=== PATIENT | male | born 1985 | race Caucasian/White ===

== ENCOUNTER 2025-05-04 11:31 | Emergency (ER) | payer MEDICAID ==
[~2025-05-04] VITALS: Ht 172.7 cm; Wt 94.5 kg
[2025-05-04 15:15] VITALS: BP 127/86; PULSE 93; RESP 24; TEMP 98.8; O2SAT 96
[2025-05-04] MEDS: LORazepam 0.5 MG TAB PO ONE ×2 (15:27→16:06)
--- NOTE | 2025-05-04 15:54 | ED.PDOC ---
History of Present Illness HPI Comments This is a 39-year-old male that comes in for multiple complaints. He has a small sore on his left molina that has actually been treated with doxycycline he is on day two of those antibiotics. Lately he has been dealing with a lot of stress and anxiety and panic. He is primarily here because he wants a dose of Ativan today to calm him so he can go back to the hotel and gets his thoughts together. And he is flying next week to [place]. He needs two pills to be able to get on the plane and go back to his family. He is aware that he needs to go through therapy but will not do that here but we will do that when he gets back to [place]. Chief Complaint: Insect Bite, anxiety Time Seen by MD: 12:24 Reviewed Notes: Nurses Notes, Medications, Allergies Allergies: Uncoded Allergies: IV CONTRAST (Allergy, Unknown, 05/04/25) Information Source: Patient Mode of Arrival: Ambulatory Past Medical History PAST MEDICAL HISTORY: Anxiety Past Medical History (Other): PTSD Social History Smoker: Cigarettes Alcohol: Denies ETOH Use Drugs: Denies Drug Use Psychiatric: reports: anxiety, panic disorder Physical Exam General Appearance: No Apparent Distress HEENT: Normal ENT Inspection, PERRL/EOMI, Pharynx Normal, TMs Normal Neck: Full Range of Motion, Non-Tender, Normal Inspection Respiratory: Lungs Clear, No Respiratory Distress, Normal Breath Sounds Cardiovascular: Regular Rate/Rhythm Breast Exam: Deferred Gastrointestinal: Non Tender, Soft Genitalia: Deferred Pelvic: Deferred Rectal: Deferred Extremities: Normal inspection, Normal range of motion, Non-tender Neurologic: Alert, Normal Affect, Other (Anxious) Cerebellar Function: NOT DONE Reflexes: NOT DONE Skin: Dry, Rash, Other (Healing scab on the left lower leg) Lymphatic: No Adenopathy Was a procedure done? Was a procedure done?: No Differential Dx Considerations may include: Cellulitis, panic attacks X-Ray, Labs, Meds, VS Vital Signs Date Time Temp Pulse Resp B/P (MAP) Pulse Ox O2 Delivery O2 Flow Rate FiO2 05/04/25 15:15 93 24 96 Room Air 05/04/25 15:15 98.8 93 24 127/86 (100) 96 98.8 05/04/25 11:37 97.7 94 16 124/85 98 97.7 Current Medications Medications (Trade) Dose Ordered Sig/Richard Route Start Time Stop Time Status Last Admin Lorazepam (Ativan Tablet) 1 mg ONCE ONCE PO 05/04/25 15:00 05/04/25 15:05 DC 05/04/25 15:27 X-Ray, Labs, Meds, VS Comment Patient seen and examined by me. Patient's wound is almost healed he is already being treated with antibiotics. Patient does have severe anxiety. I told him I would not give him a full prescription for anxiety meds but I would give him one dose here so he could go back to the hotel and get herself together. He has a flight coming up this week back to [place] where he tells me he will go for some counseling I will give him two tablets of Ativan prior to his flight so he can get on the plane. No concern for suicide ideation or thoughts while he is here Time of 1ST Reevaluation: 15:52 Reevaluation 1ST: Improved Patient Education/Counseling: Diagnosis, Treatment, Prognosis, Need For Follow Up Family Education/Counseling: No Family Present SEPSIS Sepsis Screen Date sepsis recognized/suspect: May 04, 2025 Time Sepsis recognized/suspect: 9 Recent Procedure: No On Antibiotic Therapy: No Respiratory Rate >20: No Heart Rate >90: Yes Temp<36 C (96.8 F) or >38.3 C: No SBP <90 or MAP <65 mmHG: No New Acute Mental Status Change: No Is the patient on CPAP, BIPAP,: No Physician Orders Lorazepam Tablet (Ativan Tablet) (05/04/25 16:00) Vital Signs Date Time Temp Pulse Resp B/P (MAP) Pulse Ox O2 Delivery O2 Flow Rate FiO2 05/04/25 15:15 93 24 96 Room Air 05/04/25 15:15 98.8 93 24 127/86 (100) 96 98.8 05/04/25 11:37 97.7 94 16 124/85 98 97.7 Medications Medications Dose Ordered Sig/Richard Route Start Time Stop Time Status Last Admin Dose Admin Lorazepam 1 mg ONCE ONCE PO 05/04/25 15:00 05/04/25 15:05 DC 05/04/25 15:27 Departure 1 Departure Time of Disposition: 15:52 Impression: Primary Impression: Anxiety Disposition: 01 HOME / SELF CARE / HOMELESS Condition: Good Additional Instructions: Please follow-up with counseling [facility] in [place] to help deal with your anxiety and panic Take your pill exactly 1 hour before getting on the airplane If you feel at all anxious or you going to hurt yourself you need to go to an ER that is close Discharged With: Self Critical Care Note Critical Care Time?: No Stability Stability form required: KEM Clifton [employer] May 04, 2025 15:54
[2025-05-04] MEDS ORDERED: LORA2TAB89 PO (16:13)
== END 2025-05-04 16:00 | disposition home or self-care (01) ==
LOC: ER 11:31
DX: F41.9 Anxiety disorder, unspecified (principal); F17.210 Nicotine dependence, cigarettes, uncomplicated